=== PATIENT | female | born 1965 | race Caucasian/White ===

== ENCOUNTER → 2018-08-11 | Outpatient (CLI) | payer BC ==
[~2018-08-11] MED LIST: ESTRADIOL VG; MAGNESIUM OXID400 MG PO; NAPROXEN250 MG PO; NORCO 10-325 T1 EACH PO; OMEPRAZOLE20 M1 PO; VALACYCLOVIR500 MG PO
--- NOTE | 2018-08-31 08:45 | Diagnostic Imaging Report ---
#[id number] - MGSCRBIL #BILATERAL DIGITAL SCREENING MAMMOGRAM WITH CAD: 08/11/2018 CLINICAL: Routine screening. Comparison is made to exams dated: 10/22/2016 mammogram and 09/05/2015 mammogram - [facility] [place]. Current study contains 4 films. There are scattered fibroglandular elements in both breasts. Current study was also evaluated with a Computer Aided Detection (CAD) system. No significant masses, calcifications, or other findings are seen in either breast. There has been no significant interval change. IMPRESSION: NEGATIVE There is no mammographic evidence of malignancy. A 1 year screening mammogram is recommended. The patient will be notified by letter of the results. Jenaro jason/ashley:08/30/2018 12:05:28 Advanced Practice Registered Nurse: Tianna OBRIEN)(Amadou), [facility] letter sent: Compared to Prior B9 Mammogram BI-RADS: 1 Negative
== END ==
LOC: MAMMO 11:06
PROVIDERS: ATTEND Specialist
DX: Z12.31 Encounter for screening mammogram for malignant neoplasm of breast (principal)
CPT/HCPCS: 77067

== ENCOUNTER → 2018-10-15 | Day surgery (SDC) | payer BC ==
[2018-10-14 13:09] LABS: BASOPHILS % 0.4 % (0.0-1.0); EOSINOPHILS % 0.2 % (0.0-6.0); HEMATOCRIT 45.3 % (34.2-44.1); HEMOGLOBIN 14.9 g/dL (12.0-16.0); LYMPHOCYTES % 18.9 % (18.0-39.1); MEAN CORPUSCULAR HEMOGLOBIN 28.3 pg (28-32); MEAN CORPUSCULAR HGB CONC 32.9 g/dL (31-35); MONOCYTES # (AUTO) 0.5 (0.2-0.8); MONOCYTES % 4.7 % (4.4-11.3); NEUTROPHILS % 75.4 % (38.7-80.0); PLATELET COUNT 295 x10e3/uL (140-360); RED BLOOD COUNT 5.27 x10e6/uL (3.6-5.1); RED CELL DISTRIBUTION WIDTH 13.8 % (11.7-14.4)
[2018-10-14 13:42] LABS: ALANINE AMINOTRANSFERASE 20 IU/L (0-55); ALBUMIN 3.9 g/dL (3.5-5.0); ALBUMIN/GLOBULIN RATIO 0.8 (0.8-2.0); ALKALINE PHOSPHATASE 83 IU/L (40-150); ANION GAP 14.9 mmol/L (8-16); BLOOD UREA NITROGEN 17 mg/dL (7-26); BUN/CREATININE RATIO 19 (6-25); CALCIUM 10.3 mg/dL (8.4-10.2); CARBON DIOXIDE 25 mmol/L (22-29); CHLORIDE 100 mmol/L (98-107); CHOL/HDL RATIO 2.5 (3.0-3.6); CHOLESTEROL 240 MD/DL (0-199); EST GLOMERULAR FILTRATION RATE > 60 ML/MIN (60-); GLUCOSE 95 mg/dL (74-118); HDL CHOLESTEROL 97 MG/DL (40-60); INR 0.87; LDL CHOLESTEROL 129 MG/DL (60-130); POTASSIUM 3.9 mmol/L (3.5-5.1); PROTHROMBIN TIME 12.6 seconds (11.9-14.5); SODIUM 136 mmol/L (136-145); TRIGLYCERIDES 70 MG/DL (0-149)
[2018-10-15] VITALS (15 sets, daily range): BP systolic 90–120; BP diastolic 50–71
[~2018-10-15] VITALS: Ht 162.6 cm; Wt 85.7 kg
[~2018-10-15] MED LIST changes: +FENTANYL CITRATE/PF 100MCG/2 ML INJ ONE; +HEPARIN SOD/SOD CHLORIDE 2,000 ML ONE; +IOPAMIDOL 300MG/ML 100 ML INFUS..BTL IV ONE; +LIDOCAINE 1% W/EPINEPHRINE 20 ML VIAL ONE; +MIDAZOLAM HCL 2 MG/2 ML VIAL ONE; +MORPHINE SULFATE INJ 4 MG/ML INJ 1ML ONE
--- NOTE | 2018-10-15 09:53 | NUR ---
[id number] Received pt from laborer general recovery to room #10 Identifierx2.Report received from Joy RINCON. Back to baseline orientation. PEERLA Left iv site w/o s/s infiltration infusing at 75cchr. Respiration shallow and regular 100%sat on room air.Abdomen soft and non tender Denies necessity to defecate and urinate. Left femoral site dry and intact w/o s/s hematoma PPx4 present. 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 Reviewed POC with significant other Ronnie . Both understand well and copies of DC plans given to pt. 4016 significant lower sacral pain w/o positioning relief or relaxation techniques performed with pt. Medicated x 1 ,4mg Morphine Sulfate iv via IV .Immediate relaxation and comfort obtained Pt tolerating po H20 w/o nausea. 1200n Voided qs with bedpan served clear yellow urine. Significant other remains close for care. Assisted with sandwich finger foods and tolerated well.
--- NOTE | 2018-10-15 12:46 | Operative Report ---
DATE OF PROCEDURE: October 15, 2018 INDICATIONS: Peripheral arterial disease. PROCEDURES PERFORMED 1. Abdominal aortogram with runoff to bilateral lower extremities. 2. Bilateral extracranial carotid angiograms. COMPLICATIONS: None. RECOMMENDATIONS: Medical therapy. Access obtained in the left femoral artery. A 6-Maltese sheath was placed. Carotid angiography, and bilateral common carotid catheter placement was performed with no angiographic disease in both carotid arteries. Peripheral angiogram from the abdominal aorta to the femoral arteries demonstrated no evidence of peripheral arterial disease. No complications. Left groin sheath was removed under manual pressure. Patient was discharged home same day. Job#: [id number] LPA
--- NOTE | 2018-10-15 13:30 | NUR ---
Sit up Assist with dressing. Left groin w/o ooze or hematoma. Dressing dry and intact. PPx4 Reviewed DC plans with significant other and pt has copies of POC and knows importance of F/o. Iv removed left arm site healthy w/o s/s infiltration. coban 2x2 [address]. Denies co discomfort to car per w/c stable. with [facility] employee escort and buckled in car seat. Tolerating po intake and voiding well. Vs and Ekg stable.Spirits good with significant other aware of POC also. no c/o.
--- OUTSIDE RECORDS SUMMARY | 2018-10-17 11:56 | XMS REPORT | Continuity of Care Document ---
Author Author [facility] Interface Address Unknown Phone Unavailable Problems Problem Status Onset Date Classification Date Reported Comments Source 95541 E21.0 Active 09/02/2016 [facility] Neuropathy Active 11/19/2015 Problem 10/04/2016 [facility] Hypercalcemia Active 07/27/2015 Problem 10/04/2016 [facility] Bursitis of both shoulders Resolved 07/27/2014 Problem 10/04/2016 [facility] Bronchitis<sup>3</sup> Resolved 10/25/2013 Problem 10/04/2016 Data migrated from [employer] on 05/03/15. [facility] Microscopic hematuria<sup>13</sup> Active 10/25/2013 Problem 10/04/2016 Data migrated from [employer] on 03/19/15. [facility] Final: Primary hyperparathyroidism 10/04/2016 [facility] Allergic rhinitis<sup>1</sup> Active Problem 10/04/2016 Data migrated from [employer] on 03/19/15. [facility] Body mass index 30+ - obesity<sup>2</sup> Active Problem 10/04/2016 Data migrated from [employer] on 03/19/15. [facility] Chronic pain syndrome<sup>4</sup> Active Problem 10/04/2016 Data migrated from [employer] on 03/19/15. [facility] Eustachian tube disorder<sup>5</sup> Active Problem 10/04/2016 Data migrated from [employer] on 03/19/15. [facility] Hirsutism<sup>6</sup> Active Problem 10/04/2016 Data migrated from [employer] on 03/19/15. [facility] Increased frequency of urination<sup>7</sup> Active Problem 10/04/2016 Data migrated from [employer] on 03/19/15. [facility] Insomnia<sup>8</sup> Active Problem 10/04/2016 Data migrated from [employer] on 03/19/15. [facility] Low back pain<sup>9</sup> Active Problem 10/04/2016 Data migrated from [employer] on 03/19/15. [facility] Lumbosacral radiculopathy<sup>10</sup> Active Problem 10/04/2016 Data migrated from [employer] on 03/19/15. [facility] Lumbosacral spondylosis without myelopathy<sup>11</sup> Active Problem 10/04/2016 Data migrated from [employer] on 03/19/15. [facility] Menopausal syndrome<sup>12</sup> Active Problem 10/04/2016 Data migrated from [employer] on 03/19/15. [facility] Neck pain<sup>14</sup> Active Problem 10/04/2016 Data migrated from [employer] on 03/19/15. [facility] Obesity<sup>15</sup> Active Problem 10/04/2016 Data migrated from [employer] on 03/19/15. [facility] Plantar fascial fibromatosis<sup>16</sup> Active Problem 10/04/2016 Data migrated from [employer] on 03/19/15. [facility] Tinnitus<sup>17</sup> Active Problem 10/04/2016 Data migrated from [employer] on 03/19/15. [facility] PRIMARY HYPERPARATHYROIDISM Active [facility] ENCNTR FOR GENERAL ADULT MEDICAL EXAM W/ Active [facility] VITAMIN D DEFICIENCY, UNSPECIFIED Active [facility] OTHER ABNORMAL GLUCOSE Active [facility] HYPERLIPIDEMIA, UNSPECIFIED Active [facility] Medications Medication Details Route Status Patient Instructions Ordering Provider Order Date Source Omeprazole 20 mg, Route: PO, Drug form: ECTAB, Daily, Dosing Weight 89.091, kg, Start date: 10/01/16 9:00:00 COLD PRESS OPERATOR, Duration: 30 day, Stop date: 10/30/16 9:00:00 COLD PRESS OPERATOR No Longer Active 10/01/2016 [facility] Calcium Carbonate 1,000 mg, 2 tab, Route: CHEW, Drug form: CHEWTAB, PRN, Dosing Weight 89.091, kg, PRN Abnormal Lab Result, Start date: 09/30/16 21:48:00 COLD PRESS OPERATOR, Duration: 30 day, Stop date: 10/30/16 21:47:00 CSTNotes: (Same As: Tums) Calcium Carbonate 500 zp=912 mg elemental calcium Dose= mg calcium carbonate ( mg elemental calcium) No Longer Active 10/01/2016 [facility] Benadryl 12.5 mg, 5 mL, Route: PO, Drug form: LIQ, Q4H, Dosing Weight 89.091, kg, PRN See Nurse's Notes, Start date: 09/30/16 21:46:00 COLD PRESS OPERATOR, Duration: 30 day, Stop date: 10/30/16 21:45:00 CSTNotes: (Same as: B enadryl) No Longer Active 10/01/2016 [facility] valacyclovir 500 mg, 1 tab, Route: PO, Drug form: TAB, Q12H, Dosing Weight 89.091, kg, Start date: 09/30/16 21:00:00 COLD PRESS OPERATOR, Duration: 30 day, Stop date: 10/30/16 9:00:00 CSTNotes: (Same As: Valtrex) No Longer Active 10/01/2016 [facility] tramadol hydrochloride 50 MG Oral Tablet 50 mg, 1 tab, Route: PO, Drug form: TAB, BID, Dosing Weight 89.091, kg, Start date: 09/30/16 17:00:00 COLD PRESS OPERATOR, Duration: 30 day, Stop date: 10/30/16 9:00:00 CSTNotes: Not to exceed 400mg/day. (Same As: Ultram) No Longer Active 09/30/2016 [facility] Cymbalta 30 mg, 1 cap, Route: PO, Drug form: DRC, BID, Dosing Weight 89.091, kg, Start date: 09/30/16 17:00:00 COLD PRESS OPERATOR, Duration: 30 day, Stop date: 10/30/16 9:00:00 CSTNotes: (Same as: Cymbalta) (Do Not Crush) No Longer Active 09/30/2016 [facility] Acetaminophen 325 MG / Hydrocodone Bitartrate 5 MG Oral Tablet [Strong 5/325] 2 tab, Route: PO, Drug Form: TAB, Dosing Weight 89.091, kg, Q4H, PRN Pain Score 6-10, Start date: 09/30/16 15:23:00 COLD PRESS OPERATOR, Duration: 30 day, Stop date: 10/30/16 15:22:00 CSTNotes: (Same as: Strong 325/5) Do not exceed 4gm/day of acetaminophen. No Longer Active 09/30/2016 [facility] Acetaminophen 325 MG / Hydrocodone Bitartrate 5 MG Oral Tablet [Strong 5/325] 1 tab, Route: PO, Drug Form: TAB, Dosing Weight 89.091, kg, Q4H, PRN Pain 4-6/Temp > 100.4 F, Start date: 09/30/16 15:22:00 COLD PRESS OPERATOR, Duration: 30 day, Stop date: 10/30/16 15:21:00 CSTNotes: (Same as: Strong 325/5) Do not exceed 4gm/day of acetaminophen. No Longer Active 09/30/2016 [facility] Oxycodone 5 mg, 1 tab, Route: PO, Drug form: TAB, Q4H, Dosing Weight 89.091, kg, PRN Pain Score 4-6, Start date: 09/30/16 15:17:00 COLD PRESS OPERATOR, Duration: 12 hr, Stop date: 10/01/16 3:16:00 CSTNotes: (Same as: Roxicodone) Inactive 09/30/2016 [facility] Ondansetron 4 mg, 2 mL, Route: IVP, Drug form: INJ, ONCE, Dosing Weight 89.091, kg, PRN Nausea & Vomiting, Start date: 09/30/16 15:17:00 CSTNotes: (Same as: Lainey) MEDICATION WASTE Product Size: 4 mg Product Wasted: ___ mg Inactive 09/30/2016 [facility] Morphine 4 mg, 1 mL, Route: IVP, Drug form: INJ, Q5Min, Dosing Weight 89.091, kg, PRN Pain Score 7-10, Start date: 09/30/16 15:17:00 COLD PRESS OPERATOR, Duration: 3 doses or times, Stop date: 10/01/16 3:17:00 CSTNotes: (Same as:MORPhine Sulfate) Inactive 09/30/2016 [facility] Naloxone 0.4 mg, 1 mL, Route: IVP, Drug form: INJ, Q2MIN, Dosing Weight 89.091, kg, PRN Narcotic Reversal, Start date: 09/30/16 15:17:00 COLD PRESS OPERATOR, Duration: 8 doses or times, Stop date: 10/01/16 3:17:00 CSTNotes: Same as Narcan Inactive 09/30/2016 [facility] Flumazenil 0.2 mg, 2 mL, Route: IVP, Drug form: INJ, PRN, Dosing Weight 89.091, kg, PRN Benzodiazepine Reversal, Initial dose, Start date: 09/30/16 15:17:00 COLD PRESS OPERATOR, Duration: 12 hr, Stop date: 10/01/16 3:16:00 COLD PRESS OPERATOR Notes: (Same as: Romazicon) Inactive 09/30/2016 [facility] Labetalol 5 mg, 1 mL, Route: IVP, Drug form: INJ, Q5Min, Dosing Weight 89.091, kg, PRN Elevated BP, Start date: 09/30/16 15:17:00 COLD PRESS OPERATOR, Duration: 5 doses or times, Stop date: 10/01/16 3:17:00 CSTNotes: (Same as: N ormodyne, Trandate) Push over 2 minutes Give bolus over 2-3 minutes. Inactive 09/30/2016 [facility] Hydralazine 10 mg, 0.5 mL, Route: IVP, Drug form: INJ, Q20Min, Dosing Weight 89.091, kg, PRN Elevated BP, Start date: 09/30/16 15:17:00 COLD PRESS OPERATOR, Duration: 2 doses or times, Stop date: 10/01/16 3:17:00 CSTNotes: (Same as: Apresoline) Push over 5 minutes Inactive 09/30/2016 [facility] pantoprazole 40 mg, 1 tab, Route: PO, Drug form: ECTAB, Q24H, Dosing Weight 89.091, kg, Start date: 09/30/16 15:00:00 COLD PRESS OPERATOR, Duration: 30 day, Stop date: 10/29/16 15:00:00 CSTNotes: Tablet should not be chewed or c rushed. (Same as: Protonix) No Longer Active 09/30/2016 [facility] Acetaminophen 650 mg, 2 tab, Route: PO, Drug form: TAB, Q4H, Dosing Weight 89.091, kg, PRN Pain Score 1-3, Start date: 09/30/16 14:51:00 COLD PRESS OPERATOR, Duration: 30 day, Stop date: 10/30/16 14:50:00 CSTNotes: Do not exceed 4 gm/day. (Same as: Tylenol) Inactive 09/30/2016 [facility] Ondansetron 4 mg, 2 mL, Route: IVP, Drug form: INJ, Q6H, Dosing Weight 89.091, kg, PRN Nausea & Vomiting, Start date: 09/30/16 14:51:00 COLD PRESS OPERATOR, Duration: 30 day, Stop date: 10/30/16 14:50:00 CSTNotes: (Same as: Zofran) MEDICATION WASTE Product Size: 4 mg Product Wasted: ___ mg No Longer Active 09/30/2016 [facility] midazolam (ANES) Route: IV, Drug form: SOLN, ONCE, Stop date: 09/30/16 14:44:00 COLD PRESS OPERATOR Inactive 09/30/2016 [facility] lidocaine (ANES) Route: IV, Drug form: INJ, ONCE, Stop date: 09/30/16 14:44:00 COLD PRESS OPERATOR Inactive 09/30/2016 [facility] propofol (ANES) Route: IV, Drug form: INJ, ONCE, Stop date: 09/30/16 14:44:00 COLD PRESS OPERATOR Inactive 09/30/2016 [facility] fentaNYL (ANES) Route: IV, Drug form: INJ, ONCE, Stop date: 09/30/16 14:44:00 COLD PRESS OPERATOR Inactive 09/30/2016 [facility] morphine Sulfate (ANES) Route: IV, Drug form: INJ, ONCE, Stop date: 09/30/16 14:44:00 COLD PRESS OPERATOR Inactive 09/30/2016 [facility] succinylcholine (ANES) Route: IV, Drug form: INJ, ONCE, Stop date: 09/30/16 14:44:00 COLD PRESS OPERATOR Inactive 09/30/2016 [facility] dexamethasone (ANES) Route: IV, Drug form: INJ, ONCE, Stop date: 09/30/16 14:44:00 COLD PRESS OPERATOR Inactive 09/30/2016 [facility] ceFAZolin (ANES) Route: IV, Drug form: INJ, ONCE, Stop date: 09/30/16 14:37:00 COLD PRESS OPERATOR Inactive 09/30/2016 [facility] LR 1000 mL INJ (ANES) Route: IV, Total Volume: 1,000, Start date: 09/30/16 13:22:00 COLD PRESS OPERATOR, Stop date: 09/30/16 14:22:00 COLD PRESS OPERATOR Inactive 09/30/2016 [facility] Flumazenil 0.2 mg, 2 mL, Route: IVP, Drug form: INJ, PRN, Dosing Weight 89.091, kg, PRN Benzodiazepine Reversal, Initial dose, Start date: 09/30/16 13:12:00 COLD PRESS OPERATOR, Duration: 12 hr, Stop date: 10/01/16 1:11:00 COLD PRESS OPERATOR Notes: (Same as: Romazicon) Inactive 09/30/2016 [facility] Naloxone 0.4 mg, 1 mL, Route: IVP, Drug form: INJ, Q2MIN, Dosing Weight 89.091, kg, PRN Narcotic Reversal, Start date: 09/30/16 13:12:00 COLD PRESS OPERATOR, Duration: 8 doses or times, Stop date: 10/01/16 0:00:00 CSTNotes: Same as Narcan Inactive 09/30/2016 [facility] Albuterol 0.83 MG/ML Inhalant Solution 2.5 mg, 0.5 mL, Route: NEB, Drug form: SOLN, Q20Min, Dosing Weight 89.091, kg, PRN Wheezing, Priority: STAT, Start date: 09/30/16 13:12:00 COLD PRESS OPERATOR, Duration: 12 hr, Stop date: 10/01/16 1:11:00 CSTNotes: SEE RT DOCUMENTATION MEDICATION WASTE Product Size: 2.5 mg Product Wasted: ___ mg Inactive 09/30/2016 [facility] Glycopyrrolate 0.2 mg, 1 mL, Route: IVP, Drug form: INJ, Q5Min, Dosing Weight 89.091, kg, PRN Bradycardia, Start date: 09/30/16 13:12:00 COLD PRESS OPERATOR, Duration: 3 doses or times, Stop date: 10/01/16 0:00:00 CSTNotes: (Same as: Cecily) Inactive 09/30/2016 [facility] Meperidine 12.5 mg, 0.5 mL, Route: IVP, Drug form: INJ, Q30Min, Dosing Weight 89.091, kg, PRN Other -See Comment, For shivering, Start date: 09/30/16 13:12:00 COLD PRESS OPERATOR, Duration: 2 doses or times, Stop date: 10/01/16 0 :00:00 CSTNotes: (Same as: Demerol) "Use Precaution in Elderly, Seizure disorders, and Renal impairment" Inactive 09/30/2016 [facility] Ondansetron 4 mg, 2 mL, Route: IVP, Drug form: INJ, ONCE, Dosing Weight 89.091, kg, PRN Nausea & Vomiting, Start date: 09/30/16 13:12:00 CSTNotes: (Same as: Zofran) MEDICATION WASTE Product Size: 4 mg Product Wasted: ___ mg Inactive 09/30/2016 [facility] Hydralazine 10 mg, 0.5 mL, Route: IVP, Drug form: INJ, Q20Min, Dosing Weight 89.091, kg, PRN Elevated BP, Start date: 09/30/16 13:12:00 COLD PRESS OPERATOR, Duration: 2 doses or times, Stop date: 10/01/16 0:00:00 CSTNotes: (Same as: Apresoline) Push over 5 minutes Inactive 09/30/2016 [facility] Ketorolac 15 mg, 1 mL, Route: IVP, Drug form: INJ, ONCE, Dosing Weight 89.091, kg, Start date: 09/30/16 13:12:00 COLD PRESS OPERATOR, Duration: 1 doses or times, Stop date: 09/30/16 13:12:00 CSTNotes: (Same as:Toradol) IV bolus must be given >15 seconds. Give IM administration slowly and deeply into the muscle. Not for use > 4 days. Inactive 09/30/2016 [facility] Labetalol 10 mg, 2 mL, Route: IVP, Drug form: INJ, Q5Min, Dosing Weight 89.091, kg, PRN Elevated BP, Start date: 09/30/16 13:12:00 COLD PRESS OPERATOR, Duration: 5 doses or times, Stop date: 10/01/16 0:00:00 CSTNotes: (Same as: Normodyne, Trandate) Push over 2 minutes Give bolus over 2-3 minutes. Inactive 09/30/2016 [facility] Oxycodone 10 mg, 2 tab, Route: PO, Drug form: TAB, Q4H, Dosing Weight 89.091, kg, PRN Pain Score 7-10, Start date: 09/30/16 13:12:00 COLD PRESS OPERATOR, Duration: 12 hr, Stop date: 10/01/16 1:11:00 CSTNotes: (Same as: Roxico done) Inactive 09/30/2016 [facility] Morphine 2 mg, 1 mL, Route: IVP, Drug form: INJ, Q5Min, Dosing Weight 89.091, kg, PRN Pain Score 4-6, Start date: 09/30/16 13:12:00 COLD PRESS OPERATOR, Duration: 5 doses or times, Stop date: 10/01/16 0:00:00 CSTNotes: (Same as:MORPhine Sulfate) Inactive 09/30/2016 [facility] ceFAZolin 2 gm, 50 mL, Route: IVPB, Drug form: INJ, PRE OP, Start date: 09/30/16 6:00:00 COLD PRESS OPERATOR, Duration: 30 day, Stop date: 10/30/16 5:59:00 COLD PRESS OPERATOR Inactive 09/30/2016 [facility] Lactated Ringers 1,000 mL 1,000 mL, Rate: 100 ml/hr, Infuse over: 10 hr, Route: IV, Dosing Weight 89.091 kg, Total Volume: 1,000, Start date: 09/30/16 5:50:00 COLD PRESS OPERATOR, Duration: 30 day, Stop date: 10/30/16 5:49:00 COLD PRESS OPERATOR No Longer Active 09/30/2016 [facility] omeprazole 20 mg oral enteric coated tablet 20 mg=1 tab, PO, Daily, 0 Refill(s) Active 09/29/2016 [facility] duloxetine 30 MG Enteric Coated Capsule [Cymbalta] 30 mg=1 cap, PO, BID, 0 Refill(s) Active 09/29/2016 [facility] valACYclovir 500 mg oral tablet 500 mg=1 tab, PO, Q12H, 0 Refill(s) Active 09/29/2016 [facility] meloxicam 15 mg oral tablet 15 mg=1 tab, PO, Daily, # 30 tab, 0 Refill(s) No Longer Active 09/29/2016 [facility] tramadol hydrochloride 50 MG Oral Tablet 50 mg=1 tab, PO, BID, # 30 tab, 0 Refill(s) Active 09/29/2016 [facility] Allergies, Adverse Reactions, Alerts Substance Category Reaction Severity Reaction type Status Date Reported Comments Source Medical Tape<sup>1</sup> Assertion Drug allergy Active Data migrated from [employer] on 12/18/15. Originally documented as [email or web address]. RASH [facility] Strong Assertion Drug allergy Active [facility] Immunizations Immunization Date Given Site Status Last Updated Comments Source Results Order Name Results Value Reference Range Date Interpretation Comments Source Hip wo contrast bilat MRI Hip wo contrast bilat MRI Hip wo contrast bilat MRI, 08/25/2018 3:40 PM COLD PRESS OPERATOR INDICATION: Bilateral hip hip pain. COMPARISON: None TECHNIQUE: Multi-planar, multi-sequence MR imaging of the bilateral hips was performed using routine protocol without gadolinium contrast. FINDINGS: . Bony pelvis: Marrow signal appropriate for age. No fractures, neoplasms, or destructive lesions. . Pelvic soft tissues: No masses or abnormalities in visualized portions. . Spine and sciatic nerves: Mild lower lumbar spondylosis. Right hip . Bones: No dislocation, subluxation, fracture, or osteonecrosis. Marrow signal appropriate for age. . Joint: Small joint effusion. Mild degenerative changes. Small focus of linear high signal along the anterosuperior labrum . Soft tissues: Mild right gluteus minimus and medius insertional tendinosis with associated mild trochanteric bursal fluid. Negative for iliopsoas bursitis. Left hip . Bones: No dislocation, subluxation, fracture, or osteonecrosis. Marrow signal appropriate for age. . Joint: Small joint effusion. Mild degenerative changes. Mild intrasubstance signal within the labrum compatible with degeneration. No definite tear or detachment. . Soft tissues: Mild left gluteus minimus and medius insertional tendinosis with mild joint enteric bursal fluid. Negative for iliopsoas bursitis. . Additional Comments: None IMPRESSION: 1. Mild bilateral hip osteoarthritis. Small degenerative tear involving the right anterosuperior labrum. 2. Mild bilateral gluteus medius minimus and medius insertional tendinosis with associated mild trochanteric bursitis. 3. Partially imaged mild lower lumbar spondylosis SL: [id number] 08/25/2018 - - Read by: Petar Ashby MD Dictated Date/time: 08/26/18 10:08 Electronically Signed by: Petar Ashby 08/26/18 10:26 FINAL REPORT [facility] Spine lumbar wo contrast MRI Spine lumbar wo contrast MRI Clinical Indication: Lower back pain. Comparison: None TECHNIQUE: Multiplanar T1, T2, STIR weighted noncontrast MRI of the lumbar spine is performed without intravenous contrast. FINDINGS: ALIGNMENT: 5 mm anterolisthesis of L4 on L5. The lumbar lordosis is otherwise maintained. SOFT TISSUES: The anterior and posterior paraspinal soft tissues are normal. The partially imaged abdomen is unremarkable. PARASPINAL MUSCULATURE: There is no muscular atrophy. CONUS MEDULLARIS: The conus medullaris terminates at L1-L2 VERTEBRAL BODIES: There is edema within the pedicles at L5, most pronounced on the right, and edema within the right L5-S1 facet (series 501, image 12. A right pars fracture is suspected (series 601, image 3). The bone marrow is normal for the patient's age. Moderate size Schmorl's node at the superior endplate of L2. There is no acute fracture or signs of infection. For the sake of nomenclature, five lumbar vertebrae are assumed. DEGENERATIVE CHANGES: L1-L2: Normal disc height and signal. No disc protrusion or extrusion. No spinal canal or foraminal stenosis L2-L3: Normal disc height and signal. No disc protrusion or extrusion. No spinal canal or foraminal stenosis L3-L4: Normal disc height and signal. No disc protrusion or extrusion. No spinal canal or foraminal stenosis L4-L5: Normal mildly decreased disc height and signal. Anterolisthesis uncovers the disc. This, in combination with moderate facet hypertrophy (more pronounced on the left) and thickening of the ligamentum flavum results in mild spinal canal stenosis, and mild bilateral foraminal stenosis. L5-S1: Moderately decreased disc height and signal along the periphery disc height and signal. No disc protrusion or extrusion. Symmetric disc bulge and moderate facet hypertrophy results in severe right foraminal and mild/moderate left foraminal stenosis. IMPRESSION: 1. Edema within the L5 pedicles, right L5-S1 facet with a small effusion in the right facet joint. A pars fracture/ fracture of the right articular pillar at L5 cannot be excluded. No osseous destruction to suggest infection, however an early septic arthritis cannot be excluded. CT lumbar spine can be performed for further assessment. 2. Grade 1 anterolisthesis of L4 on L5, likely degenerative. 3. Multilevel foraminal stenosis, moderate/severe on the right at L5-S1 secondary to facet hypertrophy. SL: [id number] 08/25/2018 - - Read by: Cortes Slade MD Dictated Date/time: 08/26/18 14:35 Electronically Signed by: Cortes Slade MD 08/26/18 14:50 FINAL REPORT [facility] Pelvis wo contrast MRI Pelvis wo contrast MRI MRI PELVIS WITHOUT CONTRAST HISTORY: M25.559 Pain in unspecified hip; pelvic pain, back pain, right hip pain COMPARISON: Bilateral hip MRI dated 08/25/2018 FINDINGS: No fracture or aggressive osseous lesion in the pelvis. Trace bone marrow edema in the right sacrum at the right L5/S1 degenerated facet joint, likely reactive. No other pelvic bone marrow edema. Normal sacroiliac joints. Minimal degenerative spurring of both hip joints. No hip joint effusion. No femoral head osteonecrosis. Lower lumbar spondylosis, partially visualized. There is mild soft tissue inflammatory signal of the bilateral greater trochanters, no specific. No high-grade gluteus tendon tear. Trace fluid accumulation within the bilateral trochanteric bursae. Hamstring origins are normal. Normal iliopsoas tendons. No soft tissue mass or fluid collection. IMPRESSION: 1. No fracture or aggressive osseous lesion. 2. Mild bone marrow edema in the right sacrum adjacent to the degenerated and hypertrophic right L5/S1 facet joint, likely mild reactive edema. 3. Mild soft tissue inflammatory signal bilateral greater trochanters, nonspecific. This is commonly seen in asymptomatic patients. Correlate for trochanteric pain syndrome. No high-grade gluteus tendon tear. SL: MARITZA 08/25/2018 - - Read by: Koffi Villaseñor MD Dictated Date/time: 08/26/18 16:55 Electronically Signed by: Koffi Villaseñor MD 08/26/18 17:13 FINAL REPORT [facility] Spine cervical wo contrast CT Spine cervical wo contrast CT CT CERVICAL SPINE WITHOUT CONTRAST WITH SAGITTAL AND CORONAL REFORMATTED IMAGES HISTORY: Cervical stenosis of spine; 53-year-old female reports numbness and paresthesia of the left upper extremity COMPARISON: MRI cervical spine dated 05/12/2018 TECHNIQUE: IV CONTRAST: No. GI CONTRAST: No. CT imaging performed at this location utilizes radiation dose optimization techniques which include one or more of the following: -Automated exposure control -Adjustment of the mA and/or kV according to patient size -Use of iterative reconstruction technique CT Radiation Dose DLP 755 mGy-cm FINDINGS: No fracture is seen. Vertebral body heights are maintained. No endplate erosion or aggressive osseous lesion. No facet subluxation. No spondylolisthesis. Moderate disc degeneration and disc height loss with mild broad-based posterior spur and disc complex and mild bilateral uncovertebral spurring at C5/C6 and C6/C7. Mild right-sided facet arthrosis and trace left uncovertebral spurring at C3/C4. No other degenerative changes in the cervical spine are evident. Paraspinal soft tissues are normal. Visualized lung apices clear. DISC SPACES: C2/C3: No canal stenosis or neural foraminal narrowing. C3/C4: No canal stenosis. Mild right-sided facet arthrosis and trace left uncovertebral spurring. Mild bilateral neural foraminal narrowing. C4/C5: No canal stenosis or neural foraminal narrowing. C5/C6: Moderate disc degeneration and disc height loss with mild broad-based posterior spur and disc complex and mild bilateral uncovertebral spurring. Mild canal stenosis and moderate bilateral neural foraminal narrowing. C6/C7: Moderate disc degeneration and disc height loss with mild broad-based posterior spur and disc complex and mild bilateral uncovertebral spurring. Mild canal stenosis and mild bilateral neural foraminal narrowing. C7/T1: No canal stenosis or neural foraminal narrowing. IMPRESSION: 1. Moderate disc degeneration at C5/C6 and C6/C7. 2. Mild right facet arthrosis and left uncovertebral spurring at C3/C4. 3. No high-grade canal stenosis evident by CT. 4. Moderate bilateral neural foraminal narrowing at C5/C6. SL: [id number] 08/09/2018 - - Read by: Koffi Villaseñor MD Dictated Date/time: 08/10/18 14:25 Electronically Signed by: Koffi Villaseñor MD 08/10/18 14:35 FINAL REPORT [facility] Outpatient Imaging [facility] CHEM PANEL Calcium Lvl 8.9 mg/dL 8.5 - 10.5 10/01/2016 [facility] CHEM PANEL Calcium Lvl 8.9 mg/dL 8.5 - 10.5 10/01/2016 [facility] CHEM PANEL Calcium Lvl 9.8 mg/dL 8.5 - 10.5 09/30/2016 [facility] PARATHYROID PROFILE PTH Intact 16.8 pg/mL 11.1 - 79.5 09/30/2016 Result Comment: Notified Trang [place] at 09/30/2016 15:01 by . [facility] PARATHYROID PROFILE PTH Intact 19.3 pg/mL 11.1 - 79.5 09/30/2016 Result Comment: NOTIFIED Dr. Angeles at 09/30/2016 15:00 by [facility] PARATHYROID PROFILE PTH Intact 72.0 pg/mL 11.1 - 79.5 09/30/2016 Result Comment: Critical Result(s) called to trang reno/giovanna at 1421 by cristal. Read back OK. 09/30/2016 14:22 [facility] Parathyroid Adenoma Inj NM Parathyroid Adenoma Inj NM Clinical Indication: Hyperparathyroidism Comparison: None TECHNIQUE: 25 mCi of [id number] were injected intravenously for parathyroid localization purposes only. No imaging was obtained after the injection. IMPRESSION: Technetium 99m sestamibi injection for parathyroid localization purposes. SL: [id number] 09/30/2016 - - Read by: Shelbie Steiner DO Dictated Date/time: 09/30/16 15:58 Electronically Signed by: Shelbie Steiner DO 09/30/16 16:00 FINAL REPORT [facility] RF Qnt null 0 - 20 09/29/2016 [facility] TEVIN Positive *ABN* (09/29/16 12:52 PM) Negative 09/29/2016 [facility] [employer] Ab 0.2 AI <=0.9 AI 09/29/2016 [facility] Sm Ab null <=0.9 AI 09/29/2016 [facility] IMMUNOLOGY DNA Ab (DS) Negative (09/29/16 12:52 PM) Negative 09/29/2016 [facility] SS-B (La) Ab null <=0.9 AI 09/29/2016 [facility] SS-A (Ro) Ab null <=0.9 AI 09/29/2016 [facility] TEVIN Interp Pattern appears Speckled, Chromosome Positive 09/29/2016 [facility] TEVIN Titer 1:40 *ABN* (09/29/16 12:52 PM) Negative 09/29/2016 [facility] IMMUNOLOGY C-REACTIVE PROTEIN 17.8 mg/L <=2.9 mg/L 09/29/2016 [facility] PARATHYROID PROFILE Ca Ion WB 1.36 mMol/L 1.05 - 1.25 09/29/2016 [facility] PARATHYROID PROFILE Ca Norm WB 1.32 mMol/L 1.05 - 1.25 09/29/2016 [facility] Vital Signs Vital Sign Value Date Comments Source Temperature Oral (F) 98 F 10/01/2016 [facility] Systolic (mm Hg) 92 10/01/2016 [facility] Diastolic (mm Hg) 61 10/01/2016 [facility] Heart Rate 63 10/01/2016 [facility] Respitory Rate 18 10/01/2016 [facility] Temperature Oral (F) 97.4 F 10/01/2016 [facility] Heart Rate 61 10/01/2016 [facility] Systolic (mm Hg) 99 10/01/2016 [facility] Diastolic (mm Hg) 60 10/01/2016 [facility] Respitory Rate 18 10/01/2016 [facility] BMI Calculated 34.44 10/01/2016 [facility] Height 162.56 cm 10/01/2016 [facility] Weight 91.007 10/01/2016 [facility] Systolic (mm Hg) 95 10/01/2016 [facility] Diastolic (mm Hg) 62 10/01/2016 [facility] Respitory Rate 18 10/01/2016 [facility] Heart Rate 76 10/01/2016 [facility] Temperature Oral (F) 97.9 F 10/01/2016 [facility] Weight 89.091 09/29/2016 [facility] Height 165.1 cm 09/29/2016 [facility] BMI Calculated 32.68 09/29/2016 [facility] Encounters Location Location Details Encounter Type Encounter Number Reason For Visit Attending Provider ADM Date DC Date Status Source [facility] Bedded Outpatient [id number] Oraliaradha Apodaca 09/30/2016 10/01/2016 [facility] Outpatient [id number] KAROLINE CAGLE JR 08/03/2018 [facility] Outpatient [id number] KAROLINE CAGLE JR 08/15/2018 [facility] Outpatient [id number] KAROLINE CAGLE JR 11/02/2018 [facility] Procedures Procedure Code Date Perfomer Comments Source Abdominal hysterectomy [id number] 07/27/2010 [facility] section<sup>1</sup> [id number] 1984 and 1986 [facility]
--- OUTSIDE RECORDS SUMMARY | 2018-10-17 11:56 | XMS REPORT | Summary of Care ---
Author Author [facility] Organization [facility] Address Unknown Phone Unavailable Encounter HQ Osmani(RIP) [id number] Date(s): 09/30/16 - 10/01/16 [facility] [id number] [place] [address]- Final: Primary hyperparathyroidism Discharge Disposition: Home or Self Care Attending Physician: Oralia Alvarez MD Admitting Physician: Oralia Alvarez MD Referring Physician: Oralia Alvarez MD Vital Signs 1 2 3 Most recent to oldest [Reference Range]: 162.56 cm (10/01/16 12:21 AM) 165.1 cm (09/29/16 12:09 PM) Height 98 DegF (10/01/16 8:00 AM) 97.4 DegF (10/01/16 4:40 AM) 97.9 DegF (10/01/16 12:17 AM) Temperature Oral [96.4-99.1 DegF] 92/61 mmHg (10/01/16 8:00 AM) 99/60 mmHg (10/01/16 4:40 AM) 95/62 mmHg (10/01/16 12:17 AM) Blood Pressure [90-140/60-90 mmHg] 18 BRMIN (10/01/16 8:00 AM) 18 BRMIN (10/01/16 4:40 AM) 18 BRMIN (10/01/16 12:17 AM) Respiratory Rate [14-20 BRMIN] 63 bpm (10/01/16 8:00 AM) 61 bpm (10/01/16 4:40 AM) 76 bpm (10/01/16 12:17 AM) Peripheral Pulse Rate [60-100 bpm] 91.007 kg (10/01/16 12:21 AM) 89.091 kg (09/29/16 12:09 PM) Weight 34.44 m2 (10/01/16 12:21 AM) 32.68 m2 (09/29/16 12:09 PM) Body Mass Index Problem List Condition Effective Dates Status Health Status Informant Allergic rhinitis1 Active Body mass index 30+ Active - obesity2 Bronchitis3 10/25/13 Resolved Bursitis of both 07/27/14 Resolved shoulders(Confirmed) Chronic pain Active syndrome4 Eustachian tube Active disorder5 Hirsutism6 Active Hypercalcemia(Confir 07/27/15 Active med) Increased frequency Active of urination7 Insomnia8 Active Low back pain9 Active Lumbosacral Active ynepirnjgtkne28 Lumbosacral Active spondylosis without afurkzjrjx08 Menopausal Active gaidwcfw89 Microscopic 10/25/13 Active eflewdubq04 Neck pain14 Active Neuropathy(Confirmed 11/19/15 Active ) Dfcxayd35 Active Plantar fascial Active bmaheopmslrm59 Yplbumuj28 Active 1Data migrated from [employer] on 03/19/15. 2Data migrated from [employer] on 03/19/15. 3Data migrated from [employer] on 05/03/15. 4Data migrated from [employer] on 03/19/15. 5Data migrated from [employer] on 03/19/15. 6Data migrated from [employer] on 03/19/15. 7Data migrated from [employer] on 03/19/15. 8Data migrated from [employer] on 03/19/15. 9Data migrated from [employer] on 03/19/15. 10Data migrated from [employer] on 03/19/15. 11Data migrated from [employer] on 03/19/15. 12Data migrated from [employer] on 03/19/15. 13Data migrated from [employer] on 03/19/15. 14Data migrated from [employer] on 03/19/15. 15Data migrated from [employer] on 03/19/15. 16Data migrated from [employer] on 03/19/15. 17Data migrated from [employer] on 03/19/15. Allergies, Adverse Reactions, Alerts Substance Reaction Severity Status Medical Tape1 Active [place] Active 1Data migrated from [employer] on 12/18/15. Originally documented as BANDAGES. RASH Medications acetaminophen 650 mg, 2 tab, Route: PO, Drug form: TAB, Q4H, Dosing Weight 89.091, kg, PRN Bo n Score 1-3, Start date: 09/30/16 14:51:00 VEST TAILOR, Duration: 30 day, Stop date: 14:50:00 VEST TAILOR Notes: Do not exceed 4 gm/day. (Same as: Tylenol) Start Date: 09/30/16 Stop Date: 09/30/16 Status: Discontinued ANES albuterol 0.083% inhalation solution 2.5 mg, 0.5 mL, Route: NEB, Drug form: SOLN, Q20Min, Dosing Weight 89.091, kg, P RN Wheezing, Priority: STAT, Start date: 09/30/16 13:12:00 VEST TAILOR, Duration: 12 hr, Stop date: 10/01/16 1:11:00 VEST TAILOR Notes: SEE RT DOCUMENTATION MEDICATION WASTE Product Size: 2.5 mgProduc t Wasted: ___ mg Start Date: 09/30/16 Stop Date: 09/30/16 Status: Discontinued ANES flumazenil 0.2 mg, 2 mL, Route: IVP, Drug form: INJ, PRN, Dosing Weight 89.091, kg, PRN Juliocesar zodiazepine Reversal, Initial dose, Start date: 09/30/16 15:17:00 VEST TAILOR, Duration: 12 hr, Stop date: 10/01/16 3:16:00 VEST TAILOR Notes: (Same as: Romazicon) Start Date: 09/30/16 Stop Date: 09/30/16 Status: Discontinued ANES flumazenil 0.2 mg, 2 mL, Route: IVP, Drug form: INJ, PRN, Dosing Weight 89.091, kg, PRN Juliocesar zodiazepine Reversal, Initial dose, Start date: 09/30/16 13:12:00 VEST TAILOR, Duration: 12 hr, Stop date: 10/01/16 1:11:00 VEST TAILOR Notes: (Same as: Romazicon) Start Date: 09/30/16 Stop Date: 09/30/16 Status: Discontinued ANES glycopyrrolate 0.2 mg, 1 mL, Route: IVP, Drug form: INJ, Q5Min, Dosing Weight 89.091, kg, PRN B radycardia, Start date: 09/30/16 13:12:00 VEST TAILOR, Duration: 3 doses or times, Stop date: 10/01/16 0:00:00 VEST TAILOR Notes: (Same as: Cecily) Start Date: 09/30/16 Stop Date: 09/30/16 Status: Discontinued ANES hydrALAZINE 10 mg, 0.5 mL, Route: IVP, Drug form: INJ, Q20Min, Dosing Weight 89.091, kg, PRN Elevated BP, Start date: 09/30/16 15:17:00 VEST TAILOR, Duration: 2 doses or times, Stop date: 10/01/16 3:17:00 VEST TAILOR Notes: (Same as: Apresoline)Push over 5 minutes Start Date: 09/30/16 Stop Date: 09/30/16 Status: Discontinued ANES hydrALAZINE 10 mg, 0.5 mL, Route: IVP, Drug form: INJ, Q20Min, Dosing Weight 89.091, kg, PRN Elevated BP, Start date: 09/30/16 13:12:00 VEST TAILOR, Duration: 2 doses or times, Stop date: 10/01/16 0:00:00 VEST TAILOR Notes: (Same as: Apresoline)Push over 5 minutes Start Date: 09/30/16 Stop Date: 09/30/16 Status: Discontinued ANES ketOROLAC 15 mg, 1 mL, Route: IVP, Drug form: INJ, ONCE, Dosing Weight 89.091, kg, Start d ate: 09/30/16 13:12:00 VEST TAILOR, Duration: 1 doses or times, Stop date: 09/30/16 13:1 2:00 VEST TAILOR Notes: (Same as:Toradol) IV bolus must be given >15 seconds. Give IM administration slowly and deeply into the muscle. Not for use > 4 days. Start Date: 09/30/16 Stop Date: 09/30/16 Status: Discontinued ANES labetalol 5 mg, 1 mL, Route: IVP, Drug form: INJ, Q5Min, Dosing Weight 89.091, kg, PRN Rafaela vated BP, Start date: 09/30/16 15:17:00 VEST TAILOR, Duration: 5 doses or times, Stop da te: 10/01/16 3:17:00 VEST TAILOR Notes: (Same as: Normodyne, Trandate)Push over 2 minutes Give bolus over 2-3 mi nutes. Start Date: 09/30/16 Stop Date: 09/30/16 Status: Discontinued ANES labetalol 10 mg, 2 mL, Route: IVP, Drug form: INJ, Q5Min, Dosing Weight 89.091, kg, PRN El evated BP, Start date: 09/30/16 13:12:00 VEST TAILOR, Duration: 5 doses or times, Stop d ate: 10/01/16 0:00:00 VEST TAILOR Notes: (Same as: Normodyne, Trandate)Push over 2 minutes Give bolus over 2-3 mi nutes. Start Date: 09/30/16 Stop Date: 09/30/16 Status: Discontinued ANES meperidine 12.5 mg, 0.5 mL, Route: IVP, Drug form: INJ, Q30Min, Dosing Weight 89.091, kg, P RN Other -See Comment, For shivering, Start date: 09/30/16 13:12:00 VEST TAILOR, Duratio n: 2 doses or times, Stop date: 10/01/16 0:00:00 VEST TAILOR Notes: (Same as: Demerol) "Use Precaution in Elderly, Seizure disorders, and Re nal impairment" Start Date: 09/30/16 Stop Date: 09/30/16 Status: Discontinued ANES morphine Sulfate 4 mg, 1 mL, Route: IVP, Drug form: INJ, Q5Min, Dosing Weight 89.091, kg, PRN Bo n Score 7-10, Start date: 09/30/16 15:17:00 VEST TAILOR, Duration: 3 doses or times, Sto p date: 10/01/16 3:17:00 VEST TAILOR Notes: (Same as:MORPhine Sulfate) Start Date: 09/30/16 Stop Date: 09/30/16 Status: Discontinued ANES morphine Sulfate 2 mg, 1 mL, Route: IVP, Drug form: INJ, Q5Min, Dosing Weight 89.091, kg, PRN Bo n Score 4-6, Start date: 09/30/16 15:17:00 VEST TAILOR, Duration: 5 doses or times, Stop date: 10/01/16 3:17:00 VEST TAILOR Notes: (Same as:MORPhine Sulfate) Start Date: 09/30/16 Stop Date: 09/30/16 Status: Discontinued ANES morphine Sulfate 2 mg, 1 mL, Route: IVP, Drug form: INJ, Q5Min, Dosing Weight 89.091, kg, PRN Bo n Score 4-6, Start date: 09/30/16 13:12:00 VEST TAILOR, Duration: 5 doses or times, Stop date: 10/01/16 0:00:00 VEST TAILOR Notes: (Same as:MORPhine Sulfate) Start Date: 09/30/16 Stop Date: 09/30/16 Status: Discontinued ANES naloxone 0.4 mg, 1 mL, Route: IVP, Drug form: INJ, Q2MIN, Dosing Weight 89.091, kg, PRN N arcotic Reversal, Start date: 09/30/16 15:17:00 VEST TAILOR, Duration: 8 doses or times, Stop date: 10/01/16 3:17:00 VEST TAILOR Notes: Same as Narcan Start Date: 09/30/16 Stop Date: 09/30/16 Status: Discontinued ANES naloxone 0.4 mg, 1 mL, Route: IVP, Drug form: INJ, Q2MIN, Dosing Weight 89.091, kg, PRN N arcotic Reversal, Start date: 09/30/16 13:12:00 VEST TAILOR, Duration: 8 doses or times, Stop date: 10/01/16 0:00:00 VEST TAILOR Notes: Same as Narcan Start Date: 09/30/16 Stop Date: 09/30/16 Status: Discontinued ANES ondansetron 4 mg, 2 mL, Route: IVP, Drug form: INJ, ONCE, Dosing Weight 89.091, kg, PRN Naus ea & Vomiting, Start date: 09/30/16 15:17:00 VEST TAILOR Notes: (Same as: Zofran) MEDICATION WASTE Product Size: 4 mgProduct Was pk: ___ mg Start Date: 09/30/16 Stop Date: 09/30/16 Status: Discontinued ANES ondansetron 4 mg, 2 mL, Route: IVP, Drug form: INJ, ONCE, Dosing Weight 89.091, kg, PRN Naus ea & Vomiting, Start date: 09/30/16 13:12:00 VEST TAILOR Notes: (Same as: Zofran) MEDICATION WASTE Product Size: 4 mgProduct Was pk: ___ mg Start Date: 09/30/16 Stop Date: 09/30/16 Status: Discontinued ANES oxyCODONE 5 mg, 1 tab, Route: PO, Drug form: TAB, Q4H, Dosing Weight 89.091, kg, PRN Pain Score 4-6, Start date: 09/30/16 15:17:00 VEST TAILOR, Duration: 12 hr, Stop date: 3:16:00 VEST TAILOR Notes: (Same as: Roxicodone) Start Date: 09/30/16 Stop Date: 09/30/16 Status: Discontinued ANES oxyCODONE 10 mg, 2 tab, Route: PO, Drug form: TAB, Q4H, Dosing Weight 89.091, kg, PRN Pain Score 7-10, Start date: 09/30/16 13:12:00 VEST TAILOR, Duration: 12 hr, Stop date: 09/17 03/02 1:11:00 VEST TAILOR Notes: (Same as: Roxicodone) Start Date: 09/30/16 Stop Date: 09/30/16 Status: Discontinued Benadryl 12.5 mg, 5 mL, Route: PO, Drug form: LIQ, Q4H, Dosing Weight 89.091, kg, PRN See Nurse's Notes, Start date: 09/30/16 21:46:00 VEST TAILOR, Duration: 30 day, Stop date: 10/30/16 21:45:00 VEST TAILOR Notes: (Same as: Benadryl) Start Date: 09/30/16 Stop Date: 10/01/16 Status: Discontinued calcium carbonate 1,000 mg, 2 tab, Route: CHEW, Drug form: CHEWTAB, PRN, Dosing Weight 89.091, kg, PRN Abnormal Lab Result, Start date: 09/30/16 21:48:00 VEST TAILOR, Duration: 30 day, S top date: 10/30/16 21:47:00 VEST TAILOR Notes: (Same As: Tums)Calcium Carbonate 500 jw=185 mg elemental calcium Dose=_ mg calcium carbonate ( mg elemental calcium) Start Date: 09/30/16 Stop Date: 10/01/16 Status: Discontinued ceFAZolin 2 gm, 50 mL, Route: IVPB, Drug form: INJ, PRE OP, Start date: 09/30/16 6:00:[address], Duration: 30 day, Stop date: 10/30/16 5:59:00 VEST TAILOR Start Date: 09/30/16 Stop Date: 09/30/16 Status: Completed ceFAZolin (ANES) Route: IV, Drug form: INJ, ONCE, Stop date: 09/30/16 14:37:00 VEST TAILOR Start Date: 09/30/16 Stop Date: 09/30/16 Status: Completed Cymbalta 30 mg, 1 cap, Route: PO, Drug form: DRC, BID, Dosing Weight 89.091, kg, Start da te: 09/30/16 17:00:00 VEST TAILOR, Duration: 30 day, Stop date: 10/30/16 9:00:00 VEST TAILOR Notes: (Same as: Cymbalta) (Do Not Crush) Start Date: 09/30/16 Stop Date: 10/01/16 Status: Discontinued Cymbalta 30 mg oral delayed release capsule 30 mg=1 cap, PO, BID, 0 Refill(s) Start Date: 09/29/16 Status: Ordered dexamethasone (ANES) Route: IV, Drug form: INJ, ONCE, Stop date: 09/30/16 14:44:00 VEST TAILOR Start Date: 09/30/16 Stop Date: 09/30/16 Status: Completed fentaNYL (ANES) Route: IV, Drug form: INJ, ONCE, Stop date: 09/30/16 14:44:00 VEST TAILOR Start Date: 09/30/16 Stop Date: 09/30/16 Status: Completed Lactated Ringers 1,000 mL 1,000 mL, Rate: 100 ml/hr, Infuse over: 10 hr, Route: IV, Dosing Weight 89.091 k g, Total Volume: 1,000, Start date: 09/30/16 5:50:00 VEST TAILOR, Duration: 30 day, Stop date: 10/30/16 5:49:00 VEST TAILOR Start Date: 09/30/16 Stop Date: 10/01/16 Status: Discontinued lidocaine (ANES) Route: IV, Drug form: INJ, ONCE, Stop date: 09/30/16 14:44:00 VEST TAILOR Start Date: 09/30/16 Stop Date: 09/30/16 Status: Completed LR 1000 mL INJ (ANES) Route: IV, Total Volume: 1,000, Start date: 09/30/16 13:22:00 VEST TAILOR, Stop date: 14:22:00 VEST TAILOR Start Date: 09/30/16 Stop Date: 09/30/16 Status: Completed meloxicam 15 mg oral tablet 15 mg=1 tab, PO, Daily, # 30 tab, 0 Refill(s) Start Date: 09/29/16 Stop Date: 10/01/16 Status: Discontinued midazolam (ANES) Route: IV, Drug form: SOLN, ONCE, Stop date: 09/30/16 14:44:00 VEST TAILOR Start Date: 09/30/16 Stop Date: 09/30/16 Status: Completed morphine Sulfate (ANES) Route: IV, Drug form: INJ, ONCE, Stop date: 09/30/16 14:44:00 VEST TAILOR Start Date: 09/30/16 Stop Date: 09/30/16 Status: Completed [place] 5/325 oral tablet 1 tab, Route: PO, Drug Form: TAB, Dosing Weight 89.091, kg, Q4H, PRN Pain 4-6/Te mp > 100.4 F, Start date: 09/30/16 15:22:00 VEST TAILOR, Duration: 30 day, Stop date: 10/30/16 15:21:00 VEST TAILOR Notes: (Same as: [place] 325/5) Do not exceed 4gm/day of acetaminophen. Start Date: 09/30/16 Stop Date: 10/01/16 Status: Discontinued [place] 5/325 oral tablet 2 tab, Route: PO, Drug Form: TAB, Dosing Weight 89.091, kg, Q4H, PRN Pain Score 6-10, Start date: 09/30/16 15:23:00 VEST TAILOR, Duration: 30 day, Stop date: 10/30/16 1 5:22:00 VEST TAILOR Notes: (Same as: [place] 325/5) Do not exceed 4gm/day of acetaminophen. Start Date: 09/30/16 Stop Date: 10/01/16 Status: Discontinued omeprazole 20 mg, Route: PO, Drug form: ECTAB, Daily, Dosing Weight 89.091, kg, Start date: 10/01/16 9:00:00 VEST TAILOR, Duration: 30 day, Stop date: 10/30/16 9:00:00 VEST TAILOR Start Date: 10/01/16 Stop Date: 09/30/16 Status: Deleted omeprazole 20 mg oral enteric coated tablet 20 mg=1 tab, PO, Daily, 0 Refill(s) Start Date: 09/29/16 Status: Ordered ondansetron 4 mg, 2 mL, Route: IVP, Drug form: INJ, Q6H, Dosing Weight 89.091, kg, PRN Nause a & Vomiting, Start date: 09/30/16 14:51:00 VEST TAILOR, Duration: 30 day, Stop date: 10/30/16 14:50:00 VEST TAILOR Notes: (Same as: Lainey) MEDICATION WASTE Product Size: 4 mgProduct Was pk: ___ mg Start Date: 09/30/16 Stop Date: 10/01/16 Status: Discontinued pantoprazole 40 mg, 1 tab, Route: PO, Drug form: ECTAB, Q24H, Dosing Weight 89.091, kg, Start date: 09/30/16 15:00:00 VEST TAILOR, Duration: 30 day, Stop date: 10/29/16 15:00:00 VEST TAILOR Notes: Tablet should not be chewed or crushed.(Same as: Protonix) Start Date: 09/30/16 Stop Date: 10/01/16 Status: Discontinued propofol (ANES) Route: IV, Drug form: INJ, ONCE, Stop date: 09/30/16 14:44:00 VEST TAILOR Start Date: 09/30/16 Stop Date: 09/30/16 Status: Completed succinylcholine (ANES) Route: IV, Drug form: INJ, ONCE, Stop date: 09/30/16 14:44:00 VEST TAILOR Start Date: 09/30/16 Stop Date: 09/30/16 Status: Completed tramadol 50 mg oral tablet 50 mg, 1 tab, Route: PO, Drug form: TAB, BID, Dosing Weight 89.091, kg, Start da te: 09/30/16 17:00:00 VEST TAILOR, Duration: 30 day, Stop date: 10/30/16 9:00:00 VEST TAILOR Notes: Not to exceed 400mg/day. (Same As: Ultram) Start Date: 09/30/16 Stop Date: 10/01/16 Status: Discontinued tramadol 50 mg oral tablet 50 mg=1 tab, PO, BID, # 30 tab, 0 Refill(s) Start Date: 09/29/16 Stop Date: 10/14/16 Status: Ordered valACYclovir 500 mg, 1 tab, Route: PO, Drug form: TAB, Q12H, Dosing Weight 89.091, kg, Start date: 09/30/16 21:00:00 VEST TAILOR, Duration: 30 day, Stop date: 10/30/16 9:00:00 VEST TAILOR Notes: (Same As: Valtrex) Start Date: 09/30/16 Stop Date: 10/01/16 Status: Discontinued valACYclovir 500 mg oral tablet 500 mg=1 tab, PO, Q12H, 0 Refill(s) Start Date: 09/29/16 Status: Ordered Results CHEM PANEL 1 2 3 Most recent to oldest [Reference Range]: 8.9 mg/dL (10/01/16 8:49 AM) 8.9 mg/dL (09/30/16 10:52 PM) 9.8 mg/dL (09/30/16 5:54 PM) Calcium Lvl [8.5-10.5 mg/dL] PARATHYROID PROFILE 1 2 3 Most recent to oldest [Reference Range]: 1.36 mMol/L *HI* (09/29/16 12:52 PM) Ca Ion WB [1.05-1.25 mMol/L] 1.32 mMol/L *HI* (09/29/16 12:52 PM) Ca Norm WB [1.05-1.25 mMol/L] 16.8 pg/mL 1 (09/30/16 2:38 PM) 19.3 pg/mL 2 (09/30/16 2:38 PM) 72.0 pg/mL 3 (09/30/16 1:53 PM) PTH Intact [11.1-79.5 pg/mL] 1Result Comment: Notified Trang Reno at 09/30/2016 15:01 by ROSITA. 2Result Comment: NOTIFIED Dr. Angeles at 09/30/2016 15:00 by ROSITA. 3Result Comment: Critical Result(s) called to trang reno/giovanna at 1421 by dsw. Read back OK. 09/30/2016 14:22 IMMUNOLOGY 1 2 3 Most recent to oldest [Reference Range]: Positive *ABN* (09/29/16 12:52 PM) TEVIN [Negative] 1:40 *ABN* (09/29/16 12:52 PM) TEVIN Titer [Negative] Pattern appears Speckled, Chromosome Positive *NA* (09/29/16 12:52 PM) TEVIN Interp <10 IU/mL (09/29/16 12:52 PM) RF Qnt [0-20 IU/mL] Negative (09/29/16 12:52 PM) DNA Ab (DS) [Negative] <0.2 AI (09/29/16 12:52 PM) Sm Ab [<=0.9 AI] 0.2 AI (09/29/16 12:52 PM) JAVA CONSULTANT Ab [<=0.9 AI] <0.2 AI (09/29/16 12:52 PM) SS-A (Ro) Ab [<=0.9 AI] <0.2 AI (09/29/16 12:52 PM) SS-B (La) Ab [<=0.9 AI] 17.8 mg/L *HI* (09/29/16 12:52 PM) CRP [<=2.9 mg/L] Immunizations No data available for this section Procedures Procedure Date Related Diagnosis Body Site Abdominal hysterectomy 07/27/10 section1 and 1986 Social History Social History Type Response Substance Abuse Use: None. Alcohol Never Smoking Status Never smoker; Previous treatment: None; Ready to change: No; Concerns about tobacco use in household: No; Exposure to Tobacco Smoke None; Cigarette Smoking Last 365 Days No; Reg Smoking Cessation Counseling No Assessment and Plan Extracted from: Title: Clinical Document Author: Oralia Alvarez Date: 10/01/16 Kenrick Velasquez MD Progress Note - Daily [facility] Completed: Sep, 08:48 by Oralia Alvarez MD RM: [id number] - 1, HENRY QUINTANAy (: 1965) F Attending: Oralia Alvarez MDPhone: Service: Ear Nose Throat Reason for Admission: 03619 E21.0 Working DRG: None Documented Code status: Full Code [Ordered]Current diet: Isolation: None Documented Allergies: [place], Medical Tape SUBJECTIVE Doing better OBJECTIVE A&O, nad perrla eomi Neck flat incision c/d/i BE ss removed 24hr Labs 09/30 2252 Calcium Lvl8.9 09/30 1754 Calcium Lvl9.8 09/30 1438 PTH Mqndlx63.3 PTH Zorsmd81.8 09/30 1353 PTH Dnpltd13.0 09/30 1108 Glucose POC88 Glucose POC88 09/29 1252 ANAPositive TEVIN Titer1:40 SS-A (Ro) Ab<0.2 SS-B (La) Ab<0.2 JAVA CONSULTANT Ab0.2 Sm Ab<0.2 Maldonado still necessary (Yes/No): Line still necessary (Yes/No): VitalsTmp(F)[id number] 10/01 [id number] 2.0L/m 10/01 04:4097.40723/976536 2.0L/m 10/01 00:1797.60630/856640 2.0L/m 09/30 20:2397.467926/675058 2.0L/m 09/30 17:1898.944702/376622--- 24 Hr Tmax: 98.6F (37.00c) at 09/30 10:58Vital Signs are the last 5 in the past 48 hours. DateWt(kg)Wt(lb)Ht(cm)Ht(in)Method 10/01 91.01 [id number] 64.00Measured 09/29 (initial) 89.09 196.00Measured 65.10 65.00Stated I&ORecordInOutBal 4hr Tot [phone] 4hr Tot 0 0 0 Medications (19) Active Scheduled Meds (4): 09/30/16 DULoxetine (Cymbalta) 30 mg PO BID 09/30/16 pantoprazole 40 mg PO Q24H 09/30/16 tramadol (tramadol 50 mg oral tablet) 50 mg PO BID 09/30/16 valACYclovir 500 mg PO Q12H Unscheduled Meds: None PRN Meds (5): 09/30/16 acetaminophen-hydrocodone ([place] 5/325 oral tablet) 1 tab PO Q4H 09/30/16 acetaminophen-hydrocodone ([place] 5/325 oral tablet) 2 tab PO Q4H 09/30/16 calcium carbonate 1,000 mg CHEW PRN 09/30/16 diphenhydrAMINE (Benadryl) 12.5 mg PO Q4H 09/30/16 ondansetron 4 mg IVP Q6H One Time Meds (9): (Completed) ceFAZolin (ceFAZolin (ANES)) IV ONCE (Completed) dexamethasone (dexamethasone (ANES)) IV ONCE (Completed) fentaNYL (fentaNYL (ANES)) IV ONCE 09/30/16 (Discontinued) ketOROLAC (ANES ketOROLAC) 15 mg IVP ONCE (Completed) lidocaine (lidocaine (ANES)) IV ONCE (Completed) midazolam (midazolam (ANES)) IV ONCE (Completed) morphine Sulfate (morphine Sulfate (ANES)) IV ONCE (Completed) propofol (propofol (ANES)) IV ONCE (Completed) succinylcholine (succinylcholine (ANES)) IV ONCE Continuous Infusions (1): 09/30/16 Lactated Ringers 1,000 mL 1,000 mL 100 ml/hr ASSESSMENT & EXAM pod 1 parathyroidectomy doing well be removed AVSS PLAN & TREATMENT D/c home fu 1 week hob elevated incision dry for 28-72 hrs
== END | disposition home or self-care (01) ==
LOC: CATH LAB 06:55
PROVIDERS: ATTEND Internal Medicine Interventional Cardiology
DX: I73.9 Peripheral vascular disease, unspecified (principal); I65.21 Occlusion and stenosis of right carotid artery; I83.893 Varicose veins of bilateral lower extremities with other complications; Z01.812 Encounter for preprocedural laboratory examination; Z68.32 Body mass index [BMI] 32.0-32.9, adult
CPT/HCPCS: 36222; 36415; 75630; 80053; 80061; 85025; 85610; C1769; J2250; J2270; Q9967; 75716